=== PATIENT | male | born 1960 | race Caucasian/White ===

== ENCOUNTER 2017-08-25 10:57 | Day surgery (SDC) | payer OTHER ==
[2017-08-25] MEDS ORDERED: PROPOFOL 40 ML (12:28)
[2017-08-25] MEDS ORDERED: LIDOCAINE 2% (SDV) 5 ML INJ (12:28)
== END 2017-08-25 13:34 | disposition home or self-care (01) ==
LOC: GIL 10:57
DX: Z85.028 Personal history of other malignant neoplasm of stomach (principal)
CPT/HCPCS: 43235

== ENCOUNTER 2017-08-31 08:57 | Emergency (ER) | payer OTHER ==
[2017-08-31 14:30] LABS: ADD MAN DIFF? NO
[2017-08-31 14:32] LABS: BASOPHIL # 0.1 10^3/ul (0.0-0.1); BASOPHILS % 0.8 % (0.0-2.0); EOSINOPHILS % 0.3 % (0.0-7.0); HEMATOCRIT 38.8 % (42.0-52.0); HEMOGLOBIN 12.8 g/dl (14.0-18.0); LYMPHOCYTES # 0.8 10^3/ul (0.8-2.9); LYMPHOCYTES % 12.1 % (15.0-51.0); MEAN CORPUSCULAR HEMOGLOBIN 30.6 pg (29.0-33.0); MEAN CORPUSCULAR VOLUME 92.8 fl (82.0-101.0); MEAN PLATELET VOLUME 9.8 fl (7.4-10.4); MONOCYTE # 0.4 10^3/ul (0.3-0.9); MONOCYTES % 5.8 % (0.0-11.0); NEUTROPHIL # 5.2 10^3/ul (1.6-7.5); NEUTROPHILS % 80.5 % (39.0-77.0); PLATELET COUNT 320 10^3/UL (140-415); RED BLOOD COUNT 4.18 10^6/ul (4.70-6.10); RED CELL DISTRIBUTION WIDTH 16.5 % (11.5-14.5)
[2017-08-31 14:32] LABS: WHITE BLOOD COUNT 6.4 10^3/ul (4.8-10.8)
[2017-08-31] MEDS: SOD CHLORIDE 0.9% 1,000 ML IV (14:44)
[2017-08-31 14:52] LABS: ALANINE AMINOTRANSFERASE 43 IU/L (13-69); ALBUMIN 3.3 g/dl (3.3-4.9); ALBUMIN/GLOBULIN RATIO 1.03; ALKALINE PHOSPHATASE 137 IU/L (42-121); ANION GAP 13 (8-16); ASPARTATE AMINO TRANSFERASE 39 IU/L (15-46); BILIRUBIN,INDIRECT 0.2 mg/dl (0-1.1); BILIRUBIN,TOTAL 0.2 mg/dl (0.2-1.3); BLOOD UREA NITROGEN 19 mg/dl (7-20); CALCIUM 8.9 mg/dl (8.4-10.2); CARBON DIOXIDE 30 mmol/L (21-31); CHLORIDE 104 mmol/L (97-110); CREATININE 1.04 mg/dl (0.61-1.24); GLUCOSE 108 mg/dl (70-220); LIPASE 19 U/L (23-300); POTASSIUM 4.3 mmol/L (3.5-5.1); SODIUM 143 mmol/L (135-144); TOTAL PROTEIN 6.5 g/dl (6.1-8.1)
[2017-08-31 17:27] LABS: URINE BLOOD (Dip) POC Trace-intact (NEGATIVE); URINE GLUCOSE (Dip) POC Negative (NEGATIVE); URINE KETONES (Dip) POC Negative (NEGATIVE); URINE LEUKOCYTE EST (Dip) POC Negative (NEGATIVE); URINE NITRITE (Dip) POC Negative (NEGATIVE); URINE TOTAL PROTEIN POC 3+ (NEGATIVE)
[2017-08-31 17:27] LABS: URINE PH (Dip) POC 6.5 (5.0-8.5)
== END 2017-08-31 19:07 | disposition home or self-care (01) ==
LOC: E/R 08:57
DX: K59.00 Constipation, unspecified (principal); E86.0 Dehydration; J90 Pleural effusion, not elsewhere classified; D64.9 Anemia, unspecified; Z85.028 Personal history of other malignant neoplasm of stomach
CPT/HCPCS: 36415; 71045; 74176; 76705; 80053; 81003; 83690; 85025; 99285-25

== ENCOUNTER 2017-09-01 09:20 | Emergency (ER) | payer OTHER ==
[2017-09-01 11:17] LABS: INR 1.12; PROTIME 14.6 Sec (11.9-14.9); PT RATIO 1.1
[2017-09-01 11:33] LABS: PARTIAL THROMBOPLASTIN TIME 30.1 Sec (25.0-35.0)
[2017-09-01] MEDS: LIDOCAINE 1% (MPF) 5 ML VIAL (15:27)
== END 2017-09-01 17:18 | disposition home or self-care (01) ==
LOC: E/R 09:20
DX: J90 Pleural effusion, not elsewhere classified (principal); Z85.028 Personal history of other malignant neoplasm of stomach
CPT/HCPCS: 71045; 76942; 85610; 85730; 99285-25

== ENCOUNTER 2017-09-25 19:05 | Inpatient (IN) | payer OTHER ==
[2017-09-25] MEDS: ONDANSETRON 4 MG INJ IV (20:40)
[2017-09-25] MEDS: morphine 2 MG INJ IV (20:40)
[2017-09-25] MEDS: SOD CHLORIDE 0.9% 1,000 ML IV (20:40)
[2017-09-25 20:54] LABS: ADD MAN DIFF? NO
[2017-09-25 21:00] LABS: BASOPHILS % 0.1 % (0.0-2.0); HEMATOCRIT 40.2 % (42.0-52.0); LYMPHOCYTES # 0.6 10^3/ul (0.8-2.9); LYMPHOCYTES % 6.8 % (15.0-51.0); MEAN CORPUSCULAR HEMOGLOBIN 31.7 pg (29.0-33.0); MEAN CORPUSCULAR HGB CONC 34.8 g/dl (32.0-37.0); MEAN CORPUSCULAR VOLUME 91.2 fl (82.0-101.0); MEAN PLATELET VOLUME 10.5 fl (7.4-10.4); MONOCYTE # 0.4 10^3/ul (0.3-0.9); MONOCYTES % 4.6 % (0.0-11.0); NEUTROPHILS % 88.1 % (39.0-77.0); PLATELET COUNT 225 10^3/UL (140-415); RED BLOOD COUNT 4.41 10^6/ul (4.70-6.10); RED CELL DISTRIBUTION WIDTH 15.5 % (11.5-14.5)
[2017-09-25 21:00] LABS: WHITE BLOOD COUNT 9.1 10^3/ul (4.8-10.8)
[2017-09-25 21:20] LABS: PROTIME 16.4 Sec (11.9-14.9); PT RATIO 1.3
[2017-09-25 21:26] LABS: ALANINE AMINOTRANSFERASE 123 IU/L (13-69); ALBUMIN 2.6 g/dl (3.3-4.9); ALBUMIN/GLOBULIN RATIO 0.86; ALKALINE PHOSPHATASE 265 IU/L (42-121); ANION GAP 13 (8-16); ASPARTATE AMINO TRANSFERASE 119 IU/L (15-46); BILIRUBIN,INDIRECT 0.3 mg/dl (0-1.1); BILIRUBIN,TOTAL 0.3 mg/dl (0.2-1.3); BLOOD UREA NITROGEN 27 mg/dl (7-20); CALCIUM 8.5 mg/dl (8.4-10.2); CARBON DIOXIDE 24 mmol/L (21-31); CHLORIDE 103 mmol/L (97-110); CREATININE 0.98 mg/dl (0.61-1.24); GLUCOSE 119 mg/dl (70-220); LIPASE 40 U/L (23-300); POTASSIUM 4.6 mmol/L (3.5-5.1); SODIUM 135 mmol/L (135-144); TOTAL PROTEIN 5.6 g/dl (6.1-8.1)
[2017-09-25 21:29] LABS: ADD UMIC YES; UR ASCORBIC ACID NEGATIVE (NEGATIVE); UR BILIRUBIN (Dip) NEGATIVE (NEGATIVE); UR BLOOD (Dip) 1+ mg/dL (NEGATIVE); UR CLARITY CLEAR (CLEAR); UR COLOR YELLOW (YELLOW); UR GLUCOSE (Dip) NEGATIVE (NEGATIVE); UR KETONES (Dip) NEGATIVE (NEGATIVE); UR LEUKOCYTE ESTERASE (Dip) NEGATIVE Leu/ul (NEGATIVE); UR MUCUS FEW /HPF (NONE SEEN); UR NITRITE (Dip) NEGATIVE (NEGATIVE); UR RBC 1 /HPF (0-5); UR SPECIFIC GRAVITY (Dip) 1.009 (1.003-1.030); UR TOTAL PROTEIN (Dip) 3+ mg/dl (NEGATIVE); UR UROBILINOGEN (Dip) NEGATIVE (NEGATIVE); UR WBC 2 /HPF (0-5)
[2017-09-25 21:39] LABS: TROPONIN-I 0.339 ng/ml (0.00-0.12)
[2017-09-25] MEDS: ASPIRIN 81 MG TAB PO (22:17)
[2017-09-26] MEDS ORDERED: ACETAMINOPHEN 325 MG TAB PO (06:00)
[2017-09-26] MEDS ORDERED: NACL 0.9% 3 ML SYG IV (06:00)
[2017-09-26] MEDS ORDERED: NITROGLYCERIN (SL) 0.4 MG TAB SL (06:00)
[2017-09-26] MEDS ORDERED: ALBUTEROL/IPRATROPIUM (NEB) 3 ML AMP HHN (06:00)
[2017-09-26 07:43] LABS: ADD MAN DIFF? NO
[2017-09-26 07:47] LABS: WHITE BLOOD COUNT 8.5 10^3/ul (4.8-10.8)
[2017-09-26 07:47] LABS: BASOPHILS % 0.1 % (0.0-2.0); HEMATOCRIT 39.9 % (42.0-52.0); HEMOGLOBIN 13.7 g/dl (14.0-18.0); LYMPHOCYTES # 0.8 10^3/ul (0.8-2.9); LYMPHOCYTES % 9.8 % (15.0-51.0); MEAN CORPUSCULAR HEMOGLOBIN 31.4 pg (29.0-33.0); MEAN CORPUSCULAR HGB CONC 34.3 g/dl (32.0-37.0); MEAN CORPUSCULAR VOLUME 91.3 fl (82.0-101.0); MONOCYTE # 0.4 10^3/ul (0.3-0.9); MONOCYTES % 4.8 % (0.0-11.0); NEUTROPHIL # 7.2 10^3/ul (1.6-7.5); NEUTROPHILS % 84.9 % (39.0-77.0); PLATELET COUNT 192 10^3/UL (140-415); RED BLOOD COUNT 4.37 10^6/ul (4.70-6.10); RED CELL DISTRIBUTION WIDTH 15.6 % (11.5-14.5)
[2017-09-26 08:08] LABS: ALANINE AMINOTRANSFERASE 101 IU/L (13-69); ALBUMIN 2.7 g/dl (3.3-4.9); ALBUMIN/GLOBULIN RATIO 0.81; ALKALINE PHOSPHATASE 238 IU/L (42-121); ANION GAP 10 (8-16); ASPARTATE AMINO TRANSFERASE 83 IU/L (15-46); BILIRUBIN,INDIRECT 0.3 mg/dl (0-1.1); BILIRUBIN,TOTAL 0.3 mg/dl (0.2-1.3); BLOOD UREA NITROGEN 27 mg/dl (7-20); CALCIUM 8.4 mg/dl (8.4-10.2); CARBON DIOXIDE 21 mmol/L (21-31); CHLORIDE 109 mmol/L (97-110); CHOL/HDL RATIO 4.9 RATIO; CHOLESTEROL 182 mg/dl (100-200); CREATININE 1.04 mg/dl (0.61-1.24); GLUCOSE 98 mg/dl (70-220); HDL CHOLESTEROL 37 mg/dl (28-71); LDL CHOLESTEROL,CALCULATED 109 mg/dl; MAGNESIUM 1.9 mg/dl (1.7-2.5); POTASSIUM 4.5 mmol/L (3.5-5.1); SODIUM 135 mmol/L (135-144); TRIGLYCERIDES 181 mg/dl (0-149)
[2017-09-26 08:10] LABS: CREATINE KINASE 36 IU/L (23-200)
[2017-09-26 08:24] LABS: CK INDEX 8.4
[2017-09-26 08:25] LABS: CK-MB 3.01 ng/ml (0.0-2.4)
[2017-09-26] MEDS: ASPIRIN 81 MG TAB PO (09:00)
[2017-09-26 09:29] LABS: HEMOGLOBIN A1C 5.6 % (0-5.9)
[2017-09-26] MEDS: ENOXAPARIN 40 MG/0.4 ML SYG SC (09:32)
[2017-09-26] MEDS: DEXTROSE 5%-0.9% NACL 1,000 ML IV ×2 (10:03→22:30)
[2017-09-26 14:40] LABS: TROPONIN-I 0.305 ng/ml (0.00-0.12)
[2017-09-26] MEDS ORDERED: ENOXAPARIN 100 MG/ML SYG SC (21:00)
[2017-09-27 07:40] LABS: ADD MAN DIFF? NO
[2017-09-27 07:45] LABS: BASOPHILS % 0.1 % (0.0-2.0); EOSINOPHILS % 0.1 % (0.0-7.0); HEMATOCRIT 40.1 % (42.0-52.0); HEMOGLOBIN 13.7 g/dl (14.0-18.0); LYMPHOCYTES # 0.8 10^3/ul (0.8-2.9); LYMPHOCYTES % 11.2 % (15.0-51.0); MEAN CORPUSCULAR HEMOGLOBIN 31.4 pg (29.0-33.0); MEAN CORPUSCULAR HGB CONC 34.2 g/dl (32.0-37.0); MEAN CORPUSCULAR VOLUME 91.8 fl (82.0-101.0); MEAN PLATELET VOLUME 10.5 fl (7.4-10.4); MONOCYTE # 0.4 10^3/ul (0.3-0.9); MONOCYTES % 5.4 % (0.0-11.0); NEUTROPHIL # 6.1 10^3/ul (1.6-7.5); NEUTROPHILS % 82.9 % (39.0-77.0); PLATELET COUNT 199 10^3/UL (140-415); RED BLOOD COUNT 4.37 10^6/ul (4.70-6.10); RED CELL DISTRIBUTION WIDTH 16.1 % (11.5-14.5)
[2017-09-27 07:45] LABS: WHITE BLOOD COUNT 7.4 10^3/ul (4.8-10.8)
[2017-09-27 08:06] LABS: ANION GAP 11 (8-16); BLOOD UREA NITROGEN 31 mg/dl (7-20); CALCIUM 8.7 mg/dl (8.4-10.2); CARBON DIOXIDE 21 mmol/L (21-31); CHLORIDE 112 mmol/L (97-110); CREATININE 1.15 mg/dl (0.61-1.24); GLUCOSE 141 mg/dl (70-220); MAGNESIUM 2.1 mg/dl (1.7-2.5); PHOSPHORUS 4.1 mg/dl (2.5-4.9); POTASSIUM 4.2 mmol/L (3.5-5.1); SODIUM 140 mmol/L (135-144)
[2017-09-27] MEDS: ASPIRIN 81 MG TAB PO (08:15)
[2017-09-27 08:34] LABS: INR 1.18; PROTIME 15.2 Sec (11.9-14.9); PT RATIO 1.2
[2017-09-27] MEDS: LIDOCAINE 1% (MPF) 5 ML VIAL (09:53)
[2017-09-27] MEDS: morphine 2 MG INJ IV ×2 (10:04→14:10)
[2017-09-27] MEDS: DEXTROSE 5%-0.9% NACL 1,000 ML IV ×2 (11:16→23:12)
[2017-09-27] MEDS: IOHEXOL 300MG/ML 150 ML BTL (22:43)
[2017-09-27] MEDS: SOD CHLORIDE 0.9% 100 ML (22:43)
[2017-09-27] MEDS: ONDANSETRON 4 MG INJ IV (23:16)
[2017-09-28] MEDS: morphine 2 MG INJ IV (00:27)
[2017-09-28] MEDS: ASPIRIN 81 MG TAB PO (08:43)
[2017-09-28] MEDS: ENOXAPARIN 40 MG/0.4 ML SYG SC (08:44)
[2017-09-28] MEDS: FUROSEMIDE 20 MG TAB PO (15:49)
[2017-09-28 18:28] LABS: CREATININE,URINE RANDOM 60.56 mg/dl (20-370)
[2017-09-28] MEDS: ONDANSETRON 4 MG INJ IV (21:00)
[2017-09-29 06:40] LABS: ADD MAN DIFF? NO; HAAIG REFLEX REFLEX FILED
[2017-09-29 06:44] LABS: WHITE BLOOD COUNT 10.1 10^3/ul (4.8-10.8)
[2017-09-29 06:44] LABS: BASOPHILS % 0.1 % (0.0-2.0); EOSINOPHILS % 0.1 % (0.0-7.0); HEMATOCRIT 37.7 % (42.0-52.0); HEMOGLOBIN 13.1 g/dl (14.0-18.0); LYMPHOCYTES % 9.5 % (15.0-51.0); MEAN CORPUSCULAR HEMOGLOBIN 31.6 pg (29.0-33.0); MEAN CORPUSCULAR HGB CONC 34.7 g/dl (32.0-37.0); MEAN CORPUSCULAR VOLUME 90.8 fl (82.0-101.0); MEAN PLATELET VOLUME 10.7 fl (7.4-10.4); MONOCYTE # 0.4 10^3/ul (0.3-0.9); MONOCYTES % 4.2 % (0.0-11.0); NEUTROPHIL # 8.7 10^3/ul (1.6-7.5); NEUTROPHILS % 85.8 % (39.0-77.0); PLATELET COUNT 185 10^3/UL (140-415); RED BLOOD COUNT 4.15 10^6/ul (4.70-6.10); RED CELL DISTRIBUTION WIDTH 16.1 % (11.5-14.5)
[2017-09-29] MEDS: ONDANSETRON 4 MG INJ IV ×2 (06:47→14:22)
[2017-09-29 07:19] LABS: ALANINE AMINOTRANSFERASE 137 IU/L (13-69); ALBUMIN 2.4 g/dl (3.3-4.9); ALKALINE PHOSPHATASE 264 IU/L (42-121); ANION GAP 10 (8-16); ASPARTATE AMINO TRANSFERASE 184 IU/L (15-46); BILIRUBIN,INDIRECT 0.2 mg/dl (0-1.1); BILIRUBIN,TOTAL 0.2 mg/dl (0.2-1.3); BLOOD UREA NITROGEN 30 mg/dl (7-20); CALCIUM 8.9 mg/dl (8.4-10.2); CARBON DIOXIDE 23 mmol/L (21-31); CHLORIDE 110 mmol/L (97-110); CREATININE 1.27 mg/dl (0.61-1.24); GLUCOSE 117 mg/dl (70-220); POTASSIUM 4.2 mmol/L (3.5-5.1); SODIUM 139 mmol/L (135-144); TOTAL PROTEIN 5.8 g/dl (6.1-8.1)
[2017-09-29 07:37] LABS: HEPATITIS B SURFACE ANTIGEN NEGATIVE (NEGATIVE)
[2017-09-29 07:49] LABS: HIV 1&2 ANTIBODY NEGATIVE (NEGATIVE)
[2017-09-29 07:55] LABS: HEPATITIS B CORE ANTIBODY NEGATIVE (NEGATIVE); HEPATITIS C VIRAL ANTIBODY NEGATIVE (NEGATIVE)
[2017-09-29] MEDS: ENOXAPARIN 40 MG/0.4 ML SYG SC (09:00)
[2017-09-29] MEDS: FUROSEMIDE 20 MG TAB PO (09:17)
[2017-09-29] MEDS: ASPIRIN 81 MG TAB PO (09:17)
[2017-09-29 12:20] LABS: HAAIG REFLEX REFLEX FILED
[2017-09-29 13:19] LABS: HEPATITIS B SURFACE ANTIGEN NEGATIVE (NEGATIVE)
[2017-09-29 13:36] LABS: HEPATITIS B CORE ANTIBODY NEGATIVE (NEGATIVE); HEPATITIS C VIRAL ANTIBODY NEGATIVE (NEGATIVE)
[2017-09-29 13:39] LABS: COMPLEMENT C3 85 mg/dl (88-165); COMPLEMENT C4 32 mg/dl (14-44)
[2017-09-29 13:45] LABS: COMPLEMENT C3 89 mg/dl (88-165); COMPLEMENT C4 34 mg/dl (14-44)
[2017-09-29] MEDS: morphine 2 MG INJ IV (14:23)
[2017-09-29 15:14] LABS: RHEUMATOID FACTOR NEGATIVE (NEGATIVE)
[2017-09-29] MEDS: LIDOCAINE 2% (SDV) 5 ML INJ (18:00)
[2017-09-29] MEDS: ETOMIDATE 20 MG INJ (18:01)
[2017-09-29] MEDS: MIDAZOLAM 1 MG/ML 2 ML INJ (18:01)
[2017-09-29 19:32] LABS: COLLECTION PERIOD 24 hrs
[2017-09-29 20:09] LABS: VOLUME 900 mls
[2017-09-29 20:12] LABS: 24HR URINE TOTAL PROTEIN > 600.0 mg/24hrs (42.0-225.0)
[2017-09-30] MEDS: METOCLOPRAMIDE (1 MG/ML) 10 ML CUP PO ×4 (00:27→18:25)
[2017-09-30] MEDS: POLYETHYLENE GLYCOL 17 GM PACKET PO (06:29)
[2017-09-30 06:57] LABS: PROTEIN, TOTAL 5.4 g/dL (6.1-8.1)
[2017-09-30 07:01] LABS: ADD UMIC YES; UR ASCORBIC ACID NEGATIVE (NEGATIVE); UR BILIRUBIN (Dip) NEGATIVE (NEGATIVE); UR BLOOD (Dip) 1+ mg/dL (NEGATIVE); UR CLARITY SLIGHTLY CLOUDY (CLEAR); UR COLOR YELLOW (YELLOW); UR GLUCOSE (Dip) NEGATIVE (NEGATIVE); UR KETONES (Dip) NEGATIVE (NEGATIVE); UR LEUKOCYTE ESTERASE (Dip) NEGATIVE Leu/ul (NEGATIVE); UR MUCUS FEW /HPF (NONE SEEN); UR NITRITE (Dip) NEGATIVE (NEGATIVE); UR RBC 1 /HPF (0-5); UR SPECIFIC GRAVITY (Dip) 1.013 (1.003-1.030); UR TOTAL PROTEIN (Dip) 2+ mg/dl (NEGATIVE); UR UROBILINOGEN (Dip) NEGATIVE (NEGATIVE); UR WBC 2 /HPF (0-5)
[2017-09-30 07:17] LABS: ADD MAN DIFF? NO
[2017-09-30 07:22] LABS: WHITE BLOOD COUNT 11.2 10^3/ul (4.8-10.8)
[2017-09-30 07:22] LABS: BASOPHILS % 0.2 % (0.0-2.0); EOSINOPHILS % 0.1 % (0.0-7.0); HEMATOCRIT 38.4 % (42.0-52.0); HEMOGLOBIN 13.1 g/dl (14.0-18.0); LYMPHOCYTES # 1.5 10^3/ul (0.8-2.9); LYMPHOCYTES % 13.3 % (15.0-51.0); MEAN CORPUSCULAR HEMOGLOBIN 31.5 pg (29.0-33.0); MEAN CORPUSCULAR HGB CONC 34.1 g/dl (32.0-37.0); MEAN CORPUSCULAR VOLUME 92.3 fl (82.0-101.0); MEAN PLATELET VOLUME 11.1 fl (7.4-10.4); MONOCYTE # 0.5 10^3/ul (0.3-0.9); MONOCYTES % 4.6 % (0.0-11.0); NEUTROPHIL # 9.1 10^3/ul (1.6-7.5); NEUTROPHILS % 81.4 % (39.0-77.0); PLATELET COUNT 182 10^3/UL (140-415); RED BLOOD COUNT 4.16 10^6/ul (4.70-6.10); RED CELL DISTRIBUTION WIDTH 16.2 % (11.5-14.5)
[2017-09-30 07:45] LABS: ALANINE AMINOTRANSFERASE 164 IU/L (13-69); ALBUMIN 2.5 g/dl (3.3-4.9); ALBUMIN/GLOBULIN RATIO 0.71; ALKALINE PHOSPHATASE 352 IU/L (42-121); ANION GAP 11 (8-16); ASPARTATE AMINO TRANSFERASE 197 IU/L (15-46); BILIRUBIN,INDIRECT 0.3 mg/dl (0-1.1); BILIRUBIN,TOTAL 0.3 mg/dl (0.2-1.3); BLOOD UREA NITROGEN 40 mg/dl (7-20); CARBON DIOXIDE 23 mmol/L (21-31); CHLORIDE 109 mmol/L (97-110); CREATININE 1.47 mg/dl (0.61-1.24); GLUCOSE 127 mg/dl (70-220); POTASSIUM 4.3 mmol/L (3.5-5.1); SODIUM 139 mmol/L (135-144)
[2017-09-30 08:15] LABS: CREATININE,URINE RANDOM 60.87 mg/dl (20-370)
[2017-09-30 08:15] LABS: SODIUM,URINE RANDOM 15 mmol/L (30-90)
[2017-09-30] MEDS: ENOXAPARIN 40 MG/0.4 ML SYG SC (08:57)
[2017-09-30] MEDS: ASPIRIN 81 MG TAB PO (08:58)
[2017-09-30 13:47] LABS: ANA SCREEN NEGATIVE (NEGATIVE)
[2017-09-30 15:15] LABS: MYELOPEROXIDASE ANTIBODY <1.0 AI; PROTEINASE-3 ANTIBODY <1.0 AI
[2017-09-30 16:48] LABS: ALBUMIN 2.2 g/dL (3.8-4.8); ALPHA-1-GLOBULINS 0.4 g/dL (0.2-0.3); BETA 2 GLOBULINS 0.4 g/dL (0.2-0.5); BETA GLOBULINS 0.5 g/dL (0.4-0.6); GAMMA GLOBULINS 0.8 g/dL (0.8-1.7)
[2017-09-30] MEDS: ALBUMIN HUMAN 25% 100 ML IV (18:27)
[2017-10-01] MEDS: METOCLOPRAMIDE (1 MG/ML) 10 ML CUP PO ×5 (01:09→23:36)
[2017-10-01] MEDS: ALBUMIN HUMAN 25% 100 ML IV ×2 (01:09→09:25)
[2017-10-01 06:27] LABS: ADD MAN DIFF? NO
[2017-10-01 06:38] LABS: WHITE BLOOD COUNT 9.5 10^3/ul (4.8-10.8)
[2017-10-01 06:38] LABS: BASOPHILS % 0.1 % (0.0-2.0); EOSINOPHILS % 0.1 % (0.0-7.0); HEMATOCRIT 30.2 % (42.0-52.0); HEMOGLOBIN 10.7 g/dl (14.0-18.0); LYMPHOCYTES # 0.7 10^3/ul (0.8-2.9); LYMPHOCYTES % 7.3 % (15.0-51.0); MEAN CORPUSCULAR HEMOGLOBIN 32.3 pg (29.0-33.0); MEAN CORPUSCULAR HGB CONC 35.4 g/dl (32.0-37.0); MEAN CORPUSCULAR VOLUME 91.2 fl (82.0-101.0); MONOCYTE # 0.4 10^3/ul (0.3-0.9); MONOCYTES % 3.9 % (0.0-11.0); NEUTROPHIL # 8.3 10^3/ul (1.6-7.5); PLATELET COUNT 147 10^3/UL (140-415); RED BLOOD COUNT 3.31 10^6/ul (4.70-6.10); RED CELL DISTRIBUTION WIDTH 15.9 % (11.5-14.5)
[2017-10-01 07:00] LABS: ANION GAP 12 (8-16); BLOOD UREA NITROGEN 37 mg/dl (7-20); CALCIUM 8.7 mg/dl (8.4-10.2); CARBON DIOXIDE 24 mmol/L (21-31); CHLORIDE 108 mmol/L (97-110); CREATININE 1.25 mg/dl (0.61-1.24); GLUCOSE 104 mg/dl (70-220); MAGNESIUM 2.1 mg/dl (1.7-2.5); PHOSPHORUS 3.3 mg/dl (2.5-4.9); SODIUM 140 mmol/L (135-144)
[2017-10-01] MEDS: ASPIRIN 81 MG TAB PO (09:23)
[2017-10-01] MEDS: ENOXAPARIN 40 MG/0.4 ML SYG SC (09:24)
[2017-10-01 11:38] LABS: ALANINE AMINOTRANSFERASE 169 IU/L (13-69); ALKALINE PHOSPHATASE 311 IU/L (42-121); ASPARTATE AMINO TRANSFERASE 178 IU/L (15-46); BILIRUBIN,INDIRECT 0.3 mg/dl (0-1.1); BILIRUBIN,TOTAL 0.3 mg/dl (0.2-1.3); TOTAL PROTEIN 5.6 g/dl (6.1-8.1)
[2017-10-01 14:02] LABS: ANCA SCREEN NEGATIVE (NEGATIVE)
[2017-10-01 14:46] LABS: ANTI-DNA (DOUBLE STRANDED) <95 U/mL (< 301)
[2017-10-01] MEDS: morphine LIQ (10 MG/5 ML) CUP PO (15:45)
[2017-10-01 17:01] LABS: CREATININE, RANDOM URINE 74 mg/dL (20-370); CREATININE, RANDOM URINE 75 mg/dL (20-370); MICROALBUMIN 124.2 mg/dL; MICROALBUMIN/CREATININE RATIO 1678 (<30); PROTEIN/CREATININE RATIO 3373 mg/g creat (22-128)
[2017-10-01] MEDS: MAGNESIUM HYDROXIDE 30ML CUP PO (22:20)
[2017-10-02] MEDS: METOCLOPRAMIDE (1 MG/ML) 10 ML CUP PO ×3 (05:20→18:55)
[2017-10-02 05:35] LABS: ADD MAN DIFF? NO
[2017-10-02 05:37] LABS: WHITE BLOOD COUNT 11.3 10^3/ul (4.8-10.8)
[2017-10-02 05:37] LABS: BASOPHILS % 0.1 % (0.0-2.0); EOSINOPHILS % 0.1 % (0.0-7.0); HEMATOCRIT 36.1 % (42.0-52.0); HEMOGLOBIN 12.4 g/dl (14.0-18.0); LYMPHOCYTES # 0.7 10^3/ul (0.8-2.9); LYMPHOCYTES % 6.4 % (15.0-51.0); MEAN CORPUSCULAR HEMOGLOBIN 31.6 pg (29.0-33.0); MEAN CORPUSCULAR HGB CONC 34.3 g/dl (32.0-37.0); MEAN CORPUSCULAR VOLUME 91.9 fl (82.0-101.0); MEAN PLATELET VOLUME 11.4 fl (7.4-10.4); MONOCYTE # 0.5 10^3/ul (0.3-0.9); MONOCYTES % 4.5 % (0.0-11.0); NEUTROPHILS % 88.5 % (39.0-77.0); PLATELET COUNT 162 10^3/UL (140-415); RED BLOOD COUNT 3.93 10^6/ul (4.70-6.10)
[2017-10-02 06:20] LABS: ANION GAP 15 (8-16); BLOOD UREA NITROGEN 33 mg/dl (7-20); CALCIUM 8.8 mg/dl (8.4-10.2); CARBON DIOXIDE 24 mmol/L (21-31); CHLORIDE 106 mmol/L (97-110); CREATININE 0.88 mg/dl (0.61-1.24); GLUCOSE 104 mg/dl (70-220); PHOSPHORUS 3.4 mg/dl (2.5-4.9); POTASSIUM 4.3 mmol/L (3.5-5.1); SODIUM 141 mmol/L (135-144)
[2017-10-02 06:25] LABS: IRON 29 ug/dl (35-150)
[2017-10-02 06:34] LABS: % IRON SATURATION 15 % SAT (22-52); TOTAL IRON BINDING CAPACITY 193 ug/dl (241-421)
[2017-10-02 06:45] LABS: FERRITIN 92.9 ng/ml (11.1-264.0)
[2017-10-02] MEDS: ASPIRIN 81 MG TAB PO (09:25)
[2017-10-02] MEDS: ENOXAPARIN 40 MG/0.4 ML SYG SC (09:26)
[2017-10-02] MEDS: MAGNESIUM CITRATE 300 ML BTL PO (18:54)
[2017-10-02] MEDS: FERROUS GLUCONATE (EC) 325 MG TAB PO (21:01)
[2017-10-03] MEDS: METOCLOPRAMIDE (1 MG/ML) 10 ML CUP PO ×4 (00:06→17:41)
[2017-10-03 04:58] LABS: ADD MAN DIFF? NO
[2017-10-03 05:00] LABS: BASOPHILS % 0.1 % (0.0-2.0); HEMATOCRIT 36.6 % (42.0-52.0); HEMOGLOBIN 12.8 g/dl (14.0-18.0); LYMPHOCYTES # 0.7 10^3/ul (0.8-2.9); LYMPHOCYTES % 5.8 % (15.0-51.0); MEAN CORPUSCULAR HEMOGLOBIN 31.8 pg (29.0-33.0); MEAN CORPUSCULAR VOLUME 90.8 fl (82.0-101.0); MEAN PLATELET VOLUME 11.2 fl (7.4-10.4); MONOCYTE # 0.5 10^3/ul (0.3-0.9); MONOCYTES % 4.2 % (0.0-11.0); NEUTROPHIL # 10.9 10^3/ul (1.6-7.5); NEUTROPHILS % 89.4 % (39.0-77.0); PLATELET COUNT 187 10^3/UL (140-415); RED BLOOD COUNT 4.03 10^6/ul (4.70-6.10); RED CELL DISTRIBUTION WIDTH 16.3 % (11.5-14.5)
[2017-10-03 05:00] LABS: WHITE BLOOD COUNT 12.1 10^3/ul (4.8-10.8)
[2017-10-03 06:11] LABS: ANION GAP 14 (8-16); BLOOD UREA NITROGEN 39 mg/dl (7-20); CALCIUM 8.7 mg/dl (8.4-10.2); CARBON DIOXIDE 26 mmol/L (21-31); CHLORIDE 107 mmol/L (97-110); CREATININE 1.12 mg/dl (0.61-1.24); GLUCOSE 119 mg/dl (70-220); MAGNESIUM 2.4 mg/dl (1.7-2.5); PHOSPHORUS 3.7 mg/dl (2.5-4.9); POTASSIUM 4.9 mmol/L (3.5-5.1); SODIUM 142 mmol/L (135-144)
[2017-10-03] MEDS: ENOXAPARIN 40 MG/0.4 ML SYG SC (09:28)
[2017-10-03] MEDS: FERROUS GLUCONATE (EC) 325 MG TAB PO ×2 (09:28→20:49)
[2017-10-03] MEDS: ASPIRIN 81 MG TAB PO (09:28)
[2017-10-03] MEDS: SOD CHLORIDE 0.9% 1,000 ML IV (11:00)
[2017-10-03] MEDS: ONDANSETRON 4 MG INJ IV (21:30)
[2017-10-04] MEDS: METOCLOPRAMIDE (1 MG/ML) 10 ML CUP PO ×4 (00:18→17:42)
[2017-10-04] MEDS: ONDANSETRON 4 MG INJ IV (05:32)
[2017-10-04] MEDS: ASPIRIN 81 MG TAB PO (08:59)
[2017-10-04] MEDS: FERROUS GLUCONATE (EC) 325 MG TAB PO ×2 (09:00→20:45)
[2017-10-04] MEDS: LISINOPRIL 5 MG TAB PO (09:00)
[2017-10-04] MEDS: ENOXAPARIN 40 MG/0.4 ML SYG SC (09:02)
[2017-10-04 15:52] LABS: INR 1.12; PROTIME 14.6 Sec (11.9-14.9); PT RATIO 1.1
[2017-10-05] MEDS: METOCLOPRAMIDE (1 MG/ML) 10 ML CUP PO ×5 (06:00→18:53)
[2017-10-05 06:02] LABS: ADD MAN DIFF? NO
[2017-10-05 06:19] LABS: ABNORMAL IP MESSAGE 1; BASOPHILS % 0.1 % (0.0-2.0); HEMATOCRIT 35.1 % (42.0-52.0); HEMOGLOBIN 12.1 g/dl (14.0-18.0); LYMPHOCYTES # 0.6 10^3/ul (0.8-2.9); LYMPHOCYTES % 5.6 % (15.0-51.0); MEAN CORPUSCULAR HEMOGLOBIN 31.9 pg (29.0-33.0); MEAN CORPUSCULAR HGB CONC 34.5 g/dl (32.0-37.0); MEAN CORPUSCULAR VOLUME 92.6 fl (82.0-101.0); MEAN PLATELET VOLUME 12.1 fl (7.4-10.4); MONOCYTE # 0.5 10^3/ul (0.3-0.9); MONOCYTES % 4.7 % (0.0-11.0); NEUTROPHIL # 9.4 10^3/ul (1.6-7.5); NEUTROPHILS % 89.3 % (39.0-77.0); PLATELET COUNT 211 10^3/UL (140-415); POSITIVE DIFF @See below; RED BLOOD COUNT 3.79 10^6/ul (4.70-6.10); RED CELL DISTRIBUTION WIDTH 16.5 % (11.5-14.5)
[2017-10-05 06:19] LABS: WHITE BLOOD COUNT 10.5 10^3/ul (4.8-10.8)
[2017-10-05 06:46] LABS: ANION GAP 11 (8-16); BLOOD UREA NITROGEN 41 mg/dl (7-20); CALCIUM 8.3 mg/dl (8.4-10.2); CARBON DIOXIDE 25 mmol/L (21-31); CHLORIDE 103 mmol/L (97-110); CREATININE 1.18 mg/dl (0.61-1.24); GLUCOSE 101 mg/dl (70-220); MAGNESIUM 2.2 mg/dl (1.7-2.5); PHOSPHORUS 3.5 mg/dl (2.5-4.9); POTASSIUM 4.4 mmol/L (3.5-5.1); SODIUM 135 mmol/L (135-144)
[2017-10-05] MEDS ORDERED: EPHEDrine SULFATE 50 MG/5 ML SYG (07:00)
[2017-10-05] MEDS: FERROUS GLUCONATE (EC) 325 MG TAB PO ×2 (09:00→21:36)
[2017-10-05] MEDS: LISINOPRIL 5 MG TAB PO (09:00)
[2017-10-05] MEDS ORDERED: FENTAnyl 50 MCG/ML VIAL (13:23)
[2017-10-05] MEDS ORDERED: METOCLOPRAMIDE 10 MG INJ (13:23)
[2017-10-05] MEDS ORDERED: ROPIVACAINE 0.5 % 30 ML VIAL (13:23)
[2017-10-05] MEDS ORDERED: MIDAZOLAM 1 MG/ML 2 ML INJ (13:23)
[2017-10-05] MEDS ORDERED: ONDANSETRON 4 MG INJ (13:23)
[2017-10-05] MEDS ORDERED: ETOMIDATE 20 MG INJ (13:23)
[2017-10-05] MEDS ORDERED: PHENYLephrine (100 MCG/ML) 5ML SYG (14:25)
[2017-10-05] MEDS ORDERED: SUCCINYLCHOLINE CHLORIDE 100 MG/5 ML SYG IV (14:25)
[2017-10-05] MEDS ORDERED: ROCURONIUM 50 MG INJ (14:25)
[2017-10-05] MEDS: LIDOCAINE 1%/EPI 30 ML INJ (14:41)
[2017-10-05] MEDS: BUPIVACAINE 0.25% (MPF) 30 ML INJ (14:41)
[2017-10-05] MEDS ORDERED: NEOSTIGMINE 3 MG/3 ML SYRINGE (15:49)
[2017-10-05] MEDS ORDERED: morphine 2 MG INJ IV (16:30)
[2017-10-05] MEDS ORDERED: HYDROCODONE/APAP (5/325) TAB PO (16:30)
[2017-10-05] MEDS ORDERED: ONDANSETRON 4 MG INJ IV (16:30)
[2017-10-05] MEDS ORDERED: HYDROmorphONE (0.2 MG/ML) 10ML SYG IV ×3 (16:30)
[2017-10-05] MEDS ORDERED: EPHEDrine SULFATE 50 MG/5 ML SYG IV (16:30)
[2017-10-05 17:26] LABS: % CRYOCRIT NONE DETECTED (NONE DETECTED)
[2017-10-05] MEDS: HYDROCODONE/APAP (5/325) TAB PO (18:54)
[2017-10-06] MEDS: METOCLOPRAMIDE (1 MG/ML) 10 ML CUP PO ×5 (06:00→23:32)
[2017-10-06] MEDS: LISINOPRIL 5 MG TAB PO (09:00)
[2017-10-06] MEDS: ASPIRIN 81 MG TAB PO (09:20)
[2017-10-06] MEDS: FERROUS GLUCONATE (EC) 325 MG TAB PO ×2 (09:21→20:56)
[2017-10-06 09:22] LABS: ANION GAP 14 (8-16); BLOOD UREA NITROGEN 48 mg/dl (7-20); CALCIUM 8.5 mg/dl (8.4-10.2); CARBON DIOXIDE 21 mmol/L (21-31); CHLORIDE 102 mmol/L (97-110); CREATININE 1.38 mg/dl (0.61-1.24); GLUCOSE 94 mg/dl (70-220); MAGNESIUM 2.2 mg/dl (1.7-2.5); PHOSPHORUS 4.5 mg/dl (2.5-4.9); POTASSIUM 4.9 mmol/L (3.5-5.1); SODIUM 132 mmol/L (135-144)
[2017-10-06] MEDS: ENOXAPARIN 40 MG/0.4 ML SYG SC (09:27)
[2017-10-06] MEDS ORDERED: morphine LIQ (10 MG/5 ML) CUP PO (14:00)
[2017-10-06] MEDS ORDERED: morphine 2 MG INJ IV (14:30)
[2017-10-06] MEDS: DIGOXIN 500 MCG INJ IV (17:23)
[2017-10-07] MEDS: METOCLOPRAMIDE (1 MG/ML) 10 ML CUP PO ×3 (05:25→18:34)
[2017-10-07] MEDS: ASPIRIN 81 MG TAB PO (08:58)
[2017-10-07] MEDS: FUROSEMIDE 20 MG INJ IV (08:58)
[2017-10-07] MEDS: FERROUS GLUCONATE (EC) 325 MG TAB PO ×2 (08:58→20:45)
[2017-10-07] MEDS: LISINOPRIL 5 MG TAB PO (08:59)
[2017-10-07 09:00] LABS: ADD MAN DIFF? NO
[2017-10-07] MEDS: ENOXAPARIN 40 MG/0.4 ML SYG SC (09:06)
[2017-10-07 09:12] LABS: BASOPHILS % 0.1 % (0.0-2.0); HEMATOCRIT 37.2 % (42.0-52.0); HEMOGLOBIN 12.7 g/dl (14.0-18.0); LYMPHOCYTES # 0.8 10^3/ul (0.8-2.9); LYMPHOCYTES % 5.3 % (15.0-51.0); MEAN CORPUSCULAR HEMOGLOBIN 31.7 pg (29.0-33.0); MEAN CORPUSCULAR HGB CONC 34.1 g/dl (32.0-37.0); MEAN CORPUSCULAR VOLUME 92.8 fl (82.0-101.0); MEAN PLATELET VOLUME 11.2 fl (7.4-10.4); MONOCYTE # 0.6 10^3/ul (0.3-0.9); MONOCYTES % 4.5 % (0.0-11.0); NEUTROPHIL # 12.7 10^3/ul (1.6-7.5); NEUTROPHILS % 89.7 % (39.0-77.0); PLATELET COUNT 233 10^3/UL (140-415); RED BLOOD COUNT 4.01 10^6/ul (4.70-6.10)
[2017-10-07 09:12] LABS: WHITE BLOOD COUNT 14.2 10^3/ul (4.8-10.8)
[2017-10-07 09:28] LABS: ANION GAP 14 (8-16); BLOOD UREA NITROGEN 51 mg/dl (7-20); CALCIUM 8.3 mg/dl (8.4-10.2); CARBON DIOXIDE 24 mmol/L (21-31); CHLORIDE 96 mmol/L (97-110); CREATININE 1.66 mg/dl (0.61-1.24); GLUCOSE 107 mg/dl (70-220); POTASSIUM 5.1 mmol/L (3.5-5.1); SODIUM 129 mmol/L (135-144)
[2017-10-07] MEDS ORDERED: TPN IV (12:28)
[2017-10-07] MEDS ORDERED: ABCIXIMAB IV (12:28)
[2017-10-07] MEDS: ONDANSETRON 4 MG INJ IV (20:45)
[2017-10-08] MEDS: METOCLOPRAMIDE (1 MG/ML) 10 ML CUP PO ×5 (00:30→23:21)
[2017-10-08] MEDS: FERROUS GLUCONATE (EC) 325 MG TAB PO ×2 (08:11→20:59)
[2017-10-08] MEDS: FUROSEMIDE 20 MG INJ IV (08:11)
[2017-10-08] MEDS: ASPIRIN 81 MG TAB PO (08:11)
[2017-10-08] MEDS: ENOXAPARIN 40 MG/0.4 ML SYG SC (08:15)
[2017-10-08] MEDS: ALBUMIN HUMAN 25% 100 ML IV ×2 (10:03→17:04)
[2017-10-08] MEDS: ONDANSETRON 4 MG INJ IV (23:18)
[2017-10-09] MEDS: ALBUMIN HUMAN 25% 100 ML IV (00:55)
[2017-10-09] MEDS: METOCLOPRAMIDE (1 MG/ML) 10 ML CUP PO ×2 (06:00→11:39)
[2017-10-09] MEDS: FERROUS GLUCONATE (EC) 325 MG TAB PO ×2 (08:37→22:12)
[2017-10-09] MEDS: ASPIRIN 81 MG TAB PO (08:37)
[2017-10-09 08:43] LABS: ADD MAN DIFF? NO
[2017-10-09] MEDS: ENOXAPARIN 40 MG/0.4 ML SYG SC (08:45)
[2017-10-09 08:53] LABS: ABNORMAL IP MESSAGE 1; BASOPHILS % 0.1 % (0.0-2.0); EOSINOPHILS % 0.2 % (0.0-7.0); HEMATOCRIT 30.5 % (42.0-52.0); HEMOGLOBIN 10.8 g/dl (14.0-18.0); LYMPHOCYTES # 0.3 10^3/ul (0.8-2.9); LYMPHOCYTES % 2.8 % (15.0-51.0); MEAN CORPUSCULAR HEMOGLOBIN 32.4 pg (29.0-33.0); MEAN CORPUSCULAR HGB CONC 35.4 g/dl (32.0-37.0); MEAN CORPUSCULAR VOLUME 91.6 fl (82.0-101.0); MEAN PLATELET VOLUME 11.1 fl (7.4-10.4); MONOCYTE # 0.4 10^3/ul (0.3-0.9); MONOCYTES % 3.6 % (0.0-11.0); NEUTROPHILS % 92.9 % (39.0-77.0); PLATELET COUNT 176 10^3/UL (140-415); POSITIVE DIFF @See below; RED BLOOD COUNT 3.33 10^6/ul (4.70-6.10); RED CELL DISTRIBUTION WIDTH 15.9 % (11.5-14.5)
[2017-10-09 08:53] LABS: WHITE BLOOD COUNT 11.8 10^3/ul (4.8-10.8)
[2017-10-09 09:05] LABS: ANION GAP 13 (8-16); BLOOD UREA NITROGEN 52 mg/dl (7-20); CALCIUM 8.1 mg/dl (8.4-10.2); CARBON DIOXIDE 25 mmol/L (21-31); CHLORIDE 97 mmol/L (97-110); CREATININE 1.29 mg/dl (0.61-1.24); GLUCOSE 142 mg/dl (70-220); MAGNESIUM 2.1 mg/dl (1.7-2.5); POTASSIUM 4.3 mmol/L (3.5-5.1); SODIUM 131 mmol/L (135-144)
[2017-10-09 11:43] LABS: ALANINE AMINOTRANSFERASE 173 IU/L (13-69); ALBUMIN 2.8 g/dl (3.3-4.9); ALKALINE PHOSPHATASE 279 IU/L (42-121); ASPARTATE AMINO TRANSFERASE 357 IU/L (15-46); BILIRUBIN,INDIRECT 0.3 mg/dl (0-1.1); BILIRUBIN,TOTAL 0.3 mg/dl (0.2-1.3)
[2017-10-09] MEDS: ONDANSETRON 4 MG INJ IV (12:35)
[2017-10-09] MEDS ORDERED: ONDANSETRON 4 MG INJ IV (18:00)
[2017-10-09] MEDS: ONDANSETRON INJ 8 MG in SOD CHLORIDE 0.9% 50 ML IV ×2 (22:13→23:25)
[2017-10-10] MEDS: MAGNESIUM HYDROXIDE 30ML CUP PO (05:17)
[2017-10-10] MEDS: FERROUS GLUCONATE (EC) 325 MG TAB PO ×2 (08:21→21:00)
[2017-10-10] MEDS: ASPIRIN 81 MG TAB PO (08:21)
[2017-10-10 08:26] LABS: ADD MAN DIFF? NO
[2017-10-10 08:34] LABS: ABNORMAL IP MESSAGE 1; BASOPHILS % 0.2 % (0.0-2.0); EOSINOPHILS % 0.3 % (0.0-7.0); HEMATOCRIT 32.3 % (42.0-52.0); HEMOGLOBIN 11.3 g/dl (14.0-18.0); LYMPHOCYTES # 0.4 10^3/ul (0.8-2.9); MEAN CORPUSCULAR HEMOGLOBIN 31.8 pg (29.0-33.0); MEAN PLATELET VOLUME 11.4 fl (7.4-10.4); MONOCYTE # 0.5 10^3/ul (0.3-0.9); MONOCYTES % 3.9 % (0.0-11.0); NEUTROPHILS % 92.1 % (39.0-77.0); PLATELET COUNT 191 10^3/UL (140-415); POSITIVE DIFF @See below; RED BLOOD COUNT 3.55 10^6/ul (4.70-6.10); RED CELL DISTRIBUTION WIDTH 16.2 % (11.5-14.5)
[2017-10-10] MEDS: ENOXAPARIN 40 MG/0.4 ML SYG SC (08:34)
[2017-10-10 08:49] LABS: ALANINE AMINOTRANSFERASE 241 IU/L (13-69); ALBUMIN 2.4 g/dl (3.3-4.9); ALBUMIN/GLOBULIN RATIO 0.92; ALKALINE PHOSPHATASE 350 IU/L (42-121); ANION GAP 12 (8-16); ASPARTATE AMINO TRANSFERASE 422 IU/L (15-46); BILIRUBIN,INDIRECT 0.2 mg/dl (0-1.1); BILIRUBIN,TOTAL 0.2 mg/dl (0.2-1.3); BLOOD UREA NITROGEN 48 mg/dl (7-20); CALCIUM 7.7 mg/dl (8.4-10.2); CARBON DIOXIDE 27 mmol/L (21-31); CHLORIDE 96 mmol/L (97-110); GLUCOSE 142 mg/dl (70-220); POTASSIUM 4.5 mmol/L (3.5-5.1); SODIUM 130 mmol/L (135-144)
[2017-10-10 09:04] LABS: MAGNESIUM 2.1 mg/dl (1.7-2.5)
[2017-10-10 09:04] LABS: PHOSPHORUS 1.7 mg/dl (2.5-4.9)
[2017-10-10] MEDS: SODIUM PHOSPHATE 30 MMOL in SOD CHLORIDE 0.9% 250 ML IVPB (12:30)
[2017-10-10] MEDS: POLYETHYLENE GLYCOL 17 GM PACKET PO (16:53)
[2017-10-10] MEDS: ONDANSETRON INJ 8 MG in SOD CHLORIDE 0.9% 50 ML IV (21:36)
[2017-10-11 08:11] LABS: ADD MAN DIFF? NO
[2017-10-11 08:17] LABS: ABNORMAL IP MESSAGE 1; BASOPHILS % 0.2 % (0.0-2.0); EOSINOPHILS % 0.2 % (0.0-7.0); HEMATOCRIT 31.6 % (42.0-52.0); LYMPHOCYTES # 0.3 10^3/ul (0.8-2.9); LYMPHOCYTES % 2.7 % (15.0-51.0); MEAN CORPUSCULAR HEMOGLOBIN 31.9 pg (29.0-33.0); MEAN CORPUSCULAR HGB CONC 34.8 g/dl (32.0-37.0); MEAN CORPUSCULAR VOLUME 91.6 fl (82.0-101.0); MEAN PLATELET VOLUME 11.8 fl (7.4-10.4); MONOCYTE # 0.6 10^3/ul (0.3-0.9); MONOCYTES % 4.6 % (0.0-11.0); NEUTROPHIL # 11.5 10^3/ul (1.6-7.5); NEUTROPHILS % 91.9 % (39.0-77.0); PLATELET COUNT 201 10^3/UL (140-415); POSITIVE DIFF @See below; RED BLOOD COUNT 3.45 10^6/ul (4.70-6.10); RED CELL DISTRIBUTION WIDTH 16.6 % (11.5-14.5)
[2017-10-11 08:17] LABS: WHITE BLOOD COUNT 12.5 10^3/ul (4.8-10.8)
[2017-10-11] MEDS: FERROUS GLUCONATE (EC) 325 MG TAB PO ×2 (08:33→20:35)
[2017-10-11] MEDS: ASPIRIN 81 MG TAB PO (08:33)
[2017-10-11] MEDS: ENOXAPARIN 40 MG/0.4 ML SYG SC (08:36)
[2017-10-11 08:49] LABS: ANION GAP 9 (8-16); BLOOD UREA NITROGEN 46 mg/dl (7-20); CALCIUM 7.5 mg/dl (8.4-10.2); CARBON DIOXIDE 29 mmol/L (21-31); CHLORIDE 98 mmol/L (97-110); CREATININE 0.99 mg/dl (0.61-1.24); GLUCOSE 132 mg/dl (70-220); MAGNESIUM 2.3 mg/dl (1.7-2.5); POTASSIUM 4.8 mmol/L (3.5-5.1); SODIUM 131 mmol/L (135-144)
[2017-10-12 08:38] LABS: ANION GAP 10 (8-16); BLOOD UREA NITROGEN 44 mg/dl (7-20); CALCIUM 7.6 mg/dl (8.4-10.2); CARBON DIOXIDE 28 mmol/L (21-31); CHLORIDE 96 mmol/L (97-110); CREATININE 0.88 mg/dl (0.61-1.24); GLUCOSE 131 mg/dl (70-220); POTASSIUM 5.2 mmol/L (3.5-5.1); SODIUM 129 mmol/L (135-144)
[2017-10-12] MEDS: FERROUS GLUCONATE (EC) 325 MG TAB PO ×2 (08:51→21:00)
[2017-10-12] MEDS: ASPIRIN 81 MG TAB PO (08:51)
[2017-10-12] MEDS: ENOXAPARIN 40 MG/0.4 ML SYG SC (09:03)
[2017-10-12 17:44] LABS: ANION GAP 8 (8-16); BLOOD UREA NITROGEN 43 mg/dl (7-20); CALCIUM 7.7 mg/dl (8.4-10.2); CARBON DIOXIDE 31 mmol/L (21-31); CHLORIDE 95 mmol/L (97-110); CREATININE 0.98 mg/dl (0.61-1.24); GLUCOSE 143 mg/dl (70-220); POTASSIUM 5.3 mmol/L (3.5-5.1); SODIUM 129 mmol/L (135-144)
== END 2017-10-13 02:00 | disposition expired | DRG 391 ==
LOC: MS4 21:15 → TEL 10-05 16:25 → E/R 19:05 → PP2 09-27 22:24
PROC: 0D738ZZ Dilation of Lower Esophagus, Via Natural or Artificial Opening Endoscopic (ICD-10-PCS; principal; 2017-09-29 16:25)
PROC: 0W993ZZ Drainage of Right Pleural Cavity, Percutaneous Approach (ICD-10-PCS; 2017-09-29 16:25)
PROC: 0DHA3UZ Insertion of Feeding Device into Jejunum, Percutaneous Approach (ICD-10-PCS; 2017-09-29 16:25)
PROC: 0DBU4ZX Excision of Omentum, Percutaneous Endoscopic Approach, Diagnostic (ICD-10-PCS; 2017-09-29 16:25)
PROC: 0WBH4ZX Excision of Retroperitoneum, Percutaneous Endoscopic Approach, Diagnostic (ICD-10-PCS; 2017-09-29 16:25)
DX: K22.2 Esophageal obstruction (principal); E43 Unspecified severe protein-calorie malnutrition; I21.4 Non-ST elevation (NSTEMI) myocardial infarction; R18.0 Malignant ascites; I50.23 Acute on chronic systolic (congestive) heart failure; R64 Cachexia; J90 Pleural effusion, not elsewhere classified; I95.9 Hypotension, unspecified; C78.6 Secondary malignant neoplasm of retroperitoneum and peritoneum; N17.9 Acute kidney failure, unspecified; C16.9 Malignant neoplasm of stomach, unspecified; I42.9 Cardiomyopathy, unspecified; Z68.1 Body mass index [BMI] 19.9 or less, adult; N04.9 Nephrotic syndrome with unspecified morphologic changes; E87.1 Hypo-osmolality and hyponatremia; I46.9 Cardiac arrest, cause unspecified; Z90.3 Acquired absence of stomach [part of]; Z87.891 Personal history of nicotine dependence; D64.9 Anemia, unspecified; Z66 Do not resuscitate; E86.0 Dehydration
CPT/HCPCS: 36415; 70553; 71045; 71270; 74176; 74181; 76705; 76775; 76942; 80048; 80053; 80061; 80076; 81001; 81003; 82043; 82550; 82553; 82570; 82595; 82728; 83036; 83540; 83690; 83735; 84100; 84155; 84156; 84165; 84166; 84300; 84443; 84484; 85025; 85610; 85730; 86021; 86038; 86160; 86226; 86320; 86325; 86430; 86703; 86704; 86709; 86803; 87086; 87340; 88104; 88305; 93005; 93306; 93880; 96372; 96374; 96375; 97163; 97530; 99285-25; J1940